=== PATIENT | male | born 1985 | race Hispanic/Latino ===

== ENCOUNTER 2022-01-12 17:14 | Emergency (ER) | payer SELFPAY ==
[~2022-01-12] VITALS: Ht 157.5 cm; Wt 77.0 kg
[2022-01-12 17:59] LABS: HEMATOCRIT 31.3 % (39.0-50.0); HEMOGLOBIN 10.7 g/dl (14.0-18.0); IMMATURE GRANULOCYTES 0.2 % (0.0-5.0); MEAN CELL VOLUME 93.7 fL CALC (80.0-100.0); MEAN CORPUSCULAR HGB CONC 34.2 g/dL CAL (32.0-36.0); RED BLOOD COUNT 3.34 mill/uL (4.70-6.10); RED CELL DISTRI WIDTH 15.9 % (11.5-15.5)
[2022-01-12 18:11] LABS: ALKALINE PHOSPHATASE 231 u/l (38-126); ANION GAP 13 (6-22 (CALC)); BILIRUBIN, TOTAL 4.1 mg/dL (0.0-1.4); BUN 6 mg/dL (9-20); BUN/CREATININE RATIO 11 (12-20 (CALC)); CARBON DIOXIDE 25 mmol/l (22-30); CHLORIDE 95 mmol/l (95-108); CREATININE 0.6 mg/dL (0.7-1.3); GFR FOR AFR.AMER. > 60 ML/MIN (>=60 (CALC)); GFR OTHER RACES > 60 ML/MIN (>=60 (CALC)); POTASSIUM 2.7 mmol/l (3.5-5.1); SGOT/AST 163 u/l (17-59); SODIUM 130 mmol/l (137-146)
[2022-01-12 18:12] LABS: MAGNESIUM 1.4 mg/dL (1.6-2.3)
[2022-01-12 19:34] LABS: URINE BILIRUBIN - DIPSTICK NEGATIVE (NEGATIVE); URINE BLOOD DIPSTICK TRACE-INTACT (NEGATIVE); URINE COLOR YELLOW; URINE GLUCOSE - DIPSTICK NEGATIVE (NEGATIVE); URINE KETONE NEGATIVE (NEGATIVE); URINE LEUK ESTERASE NEGATIVE (NEGATIVE); URINE PH 6.5 (4.5-8.0); URINE PROTEIN - DIPSTICK NEGATIVE (NEG-TRACE); URINE SPECIFIC GRAVITY 1.015
[2022-01-12 19:39] LABS: URINE NITRITE - DIPSTICK NEGATIVE (Negative)
[2022-01-13 02:20] VITALS: BP 113/71
== END 2022-01-13 02:30 | disposition short-term general hospital (02) | DRG 101 ==
LOC: ED 17:14
PROVIDERS: Family Medicine
PROC: 0T9B70Z Drainage of Bladder with Drainage Device, Via Natural or Artificial Opening (ICD-10-PCS; principal; 2022-01-12)
PROC: 009U3ZX Drainage of Spinal Canal, Percutaneous Approach, Diagnostic (ICD-10-PCS; 2022-01-12)
PROC: 0BH17EZ Insertion of Endotracheal Airway into Trachea, Via Natural or Artificial Opening (ICD-10-PCS; 2022-01-12)
PROC: 5A1935Z Respiratory Ventilation, Less than 24 Consecutive Hours (ICD-10-PCS; 2022-01-12)
PROC: 05HM33Z Insertion of Infusion Device into Right Internal Jugular Vein, Percutaneous Approach (ICD-10-PCS; 2022-01-12)
DX: R56.9 Unspecified convulsions (principal); R50.9 Fever, unspecified; Z20.822 Contact with and (suspected) exposure to COVID-19
CPT/HCPCS: J0133; J1953; J2060; J3475; S0164